=== PATIENT | male | born 1985 | race Two or more races ===

== ENCOUNTER 2016-12-10 20:42 | Emergency (ER) | payer MEDICAID ==
[~2016-12-10] VITALS: Ht 175.3 cm; Wt 108.9 kg
[2016-12-10 23:14] LABS: Basophils # (auto) 0 uL; Basophils % (auto) 0.3 % (0.0-2.0); Eosinophils # (auto) 0.3 uL; Eosinophils % (auto) 2.1 % (0.0-7.0); Hematocrit 44.7 % (41.0-53.0); Hemoglobin 14.7 g/dL (13.5-17.5); Lymphocytes # (auto) 2.6 uL; Mean Corpuscular Hemoglobin 28.9 pg (28.0-32.0); Mean Corpuscular Volume 87.7 fL (80.0-100.0); Mean Platelet Volume 7.8 fL (7.4-10.4); Monocytes # (auto) 0.9 uL; Neutrophils # (auto) 8.7 uL; Neutrophils % (auto) 69.6 % (37.0-80.0); Platelet Count (auto) 329 10^3/uL (140-450); Red Cell Distribution Width 14.2 % (11.6-16.0); White Blood Cell 12.6 10^3/uL (4.4-10.8)
[2016-12-10 23:28] LABS: Calcium 8.8 mg/dL (8.5-10.1); Potassium 3.8 mmol/L (3.5-5.1)
[2016-12-10 23:33] LABS: Bilirubin, Total 0.3 mg/dL (0.2-1.0); Total Protein 8.4 g/dL (6.4-8.2)
[2016-12-11] MEDS ORDERED: LORazepam 0.5 MG TAB PO ONE (00:15)
[2016-12-11 02:40] VITALS: BP 148/98
== END 2016-12-11 03:10 | disposition home or self-care (01) ==
LOC: ER 20:50
DX: T56.891A Toxic effect of other metals, accidental (unintentional), initial encounter (principal); F41.9 Anxiety disorder, unspecified; K21.9 Gastro-esophageal reflux disease without esophagitis; F31.9 Bipolar disorder, unspecified; X58.XXXA Exposure to other specified factors, initial encounter; Y93.89 Activity, other specified; Y99.8 Other external cause status; Y92.89 Other specified places as the place of occurrence of the external cause
CPT/HCPCS: 36415; 80053; 80178; 80329; 85025; 85049; 99284; G0434

== ENCOUNTER 2017-04-22 20:47 | Emergency (ER) | payer MEDICAID ==
[~2017-04-22] VITALS: Ht 175.3 cm; Wt 163.3 kg
[2017-04-22] MEDS ORDERED: SODIUM CHLORIDE 0.9% 1,000 ML IV ONE (21:00)
[2017-04-22 21:50] LABS: Basophils # (auto) 0 uL; Basophils % (auto) 0.2 % (0.0-2.0); Eosinophils # (auto) 0.1 uL; Eosinophils % (auto) 0.3 % (0.0-7.0); Hematocrit 45.3 % (41.0-53.0); Hemoglobin 15.6 g/dL (13.5-17.5); Lymphocytes # (auto) 1.7 uL; Lymphocytes % (auto) 11.1 % (10.0-50.0); Mean Corpuscular Hemoglobin 29.5 pg (28.0-32.0); Mean Corpuscular Hgb Conc. 34.3 g/dL (32.0-36.0); Mean Corpuscular Volume 86.1 fL (80.0-100.0); Mean Platelet Volume 8.4 fL (7.4-10.4); Monocytes # (auto) 0.7 uL; Monocytes % (auto) 4.6 % (0.0-12.0); Neutrophils # (auto) 12.8 uL; Neutrophils % (auto) 83.8 % (37.0-80.0); Platelet Count (auto) 327 10^3/uL (140-450); Red Cell Distribution Width 13.9 % (11.6-16.0); White Blood Cell 15.3 10^3/uL (4.4-10.8)
[2017-04-22 22:02] LABS: Albumin 4.4 g/dL (3.4-5.0); Anion Gap 15 (5-15); Aspartate Aminotransferase 13 U/L (15-37); BUN/Creatinine Ratio 12.8; Blood Urea Nitrogen 12 mg/dL (7-18); Calcium 9.3 mg/dL (8.5-10.1); Carbon Dioxide 20 mmol/L (21-32); Chloride 107 mmol/L (98-107); GFR African American 120 mL/min; GFR Non-African American 99 mL/min; Glucose 93 mg/dL (74-106); Potassium 3.5 mmol/L (3.5-5.1); Sodium 142 mmol/L (136-145)
[2017-04-22 22:04] LABS: Alkaline Phosphatase 65 U/L (45-117); Bilirubin, Total 0.6 mg/dL (0.2-1.0); Total Protein 8.9 g/dL (6.4-8.2)
[2017-04-23 00:31] LABS: Acetaminophen < 2.0 ug/mL (10-30)
[2017-04-23 01:04] LABS: Urine Bilirubin Negative (Negative); Urine Blood Negative /uL (Negative); Urine Color Yellow (Yellow); Urine Glucose Normal (Normal); Urine Mucus FEW (None Seen); Urine Nitrite Negative (Negative); Urine RBC <1 /hpf (0 - 3); Urine Squamous Epithelial Cell FEW /hpf (<5); Urine Urobilinogen Normal (Negative)
[2017-04-23 01:06] LABS: Urine Ketone 3+ (Negative)
[2017-04-23] MEDS ORDERED: LORazepam 0.5 MG TAB PO ONE (01:15)
[2017-04-23 04:12] VITALS: BP 126/77
== END 2017-04-23 05:55 | disposition home or self-care (01) ==
LOC: EDBD 20:47 → ER 20:50
DX: F32.9 Major depressive disorder, single episode, unspecified (principal); F41.9 Anxiety disorder, unspecified; F20.9 Schizophrenia, unspecified; K21.9 Gastro-esophageal reflux disease without esophagitis
CPT/HCPCS: 36415; 80053; 80178; 80307; 80320; 80329; 81001; 85025; 93005; 94761; 96360; 96361; 99285; J7030

== ENCOUNTER 2017-06-11 00:48 | Emergency (ER) | payer MEDICAID ==
[~2017-06-11] VITALS: Ht 175.3 cm; Wt 117.1 kg
[2017-06-11 01:34] LABS: Basophils # (auto) 0 uL; Basophils % (auto) 0.3 % (0.0-2.0); CONDITION Y; Eosinophils # (auto) 0.2 uL; Eosinophils % (auto) 1.5 % (0.0-7.0); Hemoglobin 15.3 g/dL (13.5-17.5); Lymphocytes # (auto) 2.4 uL; Lymphocytes % (auto) 15.7 % (10.0-50.0); Mean Corpuscular Hemoglobin 30.1 pg (28.0-32.0); Mean Corpuscular Hgb Conc. 34.7 g/dL (32.0-36.0); Mean Corpuscular Volume 86.6 fL (80.0-100.0); Mean Platelet Volume 8.4 fL (7.4-10.4); Monocytes # (auto) 0.8 uL; Monocytes % (auto) 5.6 % (0.0-12.0); Neutrophils # (auto) 11.5 uL; Neutrophils % (auto) 76.9 % (37.0-80.0); Platelet Count (auto) 315 10^3/uL (140-450); Red Cell Distribution Width 13.9 % (11.6-16.0)
[2017-06-11 01:48] LABS: INR 0.98 (0.9-1.15); Partial Thromboplastin Time 28.2 sec (22.64-33.71); Prothrombin Time 10.7 sec (9.37-12.3)
[2017-06-11 01:51] LABS: Albumin 4.3 g/dL (3.4-5.0); BUN/Creatinine Ratio 17.3; Potassium 3.6 mmol/L (3.5-5.1)
[2017-06-11 01:54] LABS: Bilirubin, Total 0.4 mg/dL (0.2-1.0); Total Protein 8.8 g/dL (6.4-8.2)
[2017-06-11 04:03] LABS: Urine Bilirubin Negative (Negative); Urine Blood Negative /uL (Negative); Urine Color Yellow (Yellow); Urine Glucose Normal (Normal); Urine Ketone TRACE (Negative); Urine Mucus FEW (None Seen); Urine Nitrite Negative (Negative); Urine RBC <1 /hpf (0 - 3); Urine Squamous Epithelial Cell FEW /hpf (<5); Urine Urobilinogen Normal (Negative); Urine pH 5.5 (5.0-8.0)
[2017-06-11 07:00] VITALS: BP 134/84
[2017-06-11] MEDS ORDERED: CIPROFLOXACIN HCL 500 MG TAB PO ONE (08:00)
== END 2017-06-11 08:34 | disposition home or self-care (01) ==
LOC: ER 00:48
DX: N39.0 Urinary tract infection, site not specified (principal); K21.9 Gastro-esophageal reflux disease without esophagitis; R19.7 Diarrhea, unspecified
CPT/HCPCS: 36415; 74176; 80053; 81001; 82150; 83690; 85025; 85610; 85730

== ENCOUNTER 2017-06-20 22:47 | Emergency (ER) | payer MEDICAID ==
[~2017-06-20] VITALS: Ht 175.3 cm; Wt 113.4 kg
[2017-06-20 23:39] LABS: Basophils # (auto) 0 uL; Basophils % (auto) 0.2 % (0.0-2.0); Eosinophils # (auto) 0.5 uL; Eosinophils % (auto) 3.4 % (0.0-7.0); Hemoglobin 14.8 g/dL (13.5-17.5); Lymphocytes # (auto) 2.7 uL; Lymphocytes % (auto) 19.9 % (10.0-50.0); Mean Corpuscular Hemoglobin 29.2 pg (28.0-32.0); Mean Corpuscular Hgb Conc. 33.7 g/dL (32.0-36.0); Mean Corpuscular Volume 86.8 fL (80.0-100.0); Mean Platelet Volume 8.5 fL (7.4-10.4); Monocytes # (auto) 0.7 uL; Monocytes % (auto) 5.4 % (0.0-12.0); Neutrophils # (auto) 9.6 uL; Neutrophils % (auto) 71.1 % (37.0-80.0); Platelet Count (auto) 290 10^3/uL (140-450); Red Cell Distribution Width 12.9 % (11.6-16.0); White Blood Cell 13.5 10^3/uL (4.4-10.8)
[2017-06-20 23:54] LABS: Albumin 4.2 g/dL (3.4-5.0); BUN/Creatinine Ratio 21.9; Calcium 8.9 mg/dL (8.5-10.1); INR 0.95 (0.9-1.15); Partial Thromboplastin Time 28.3 sec (22.64-33.71); Potassium 3.7 mmol/L (3.5-5.1); Prothrombin Time 10.3 sec (9.37-12.3)
[2017-06-20 23:57] LABS: Bilirubin, Total 0.4 mg/dL (0.2-1.0); Total Protein 8.5 g/dL (6.4-8.2)
[2017-06-21] MEDS ORDERED: HYDROcodone-ACET 5/325MG TAB PO ONE (07:15)
[2017-06-21] MEDS ORDERED: cefTRIAXone W LIDOCAINE 1 GM IM IM ONE (07:15)
[2017-06-21] MEDS ORDERED: cefTRIAXone SOD 1,000 MG VL ONE (07:27)
[2017-06-21] MEDS ORDERED: LIDOCAINE 2%HCL (LOCAL ANESTH.) INJ 20ML MDV ONE (07:27)
[2017-06-21 08:50] VITALS: BP 128/82
== END 2017-06-21 07:24 | disposition home or self-care (01) ==
LOC: ER 22:49
DX: F41.9 Anxiety disorder, unspecified (principal); R51 Headache; R10.9 Unspecified abdominal pain; K21.9 Gastro-esophageal reflux disease without esophagitis; F20.9 Schizophrenia, unspecified
CPT/HCPCS: 36415; 70450; 80053; 82150; 83690; 85025; 85610; 85730; 96372; 99285; J0696

== ENCOUNTER 2017-08-21 17:32 | Emergency (ER) | payer MEDICAID ==
[~2017-08-21] VITALS: Ht 175.3 cm; Wt 108.9 kg
[2017-08-21 19:01] LABS: Basophils # (auto) 0 uL; Basophils % (auto) 0.3 % (0.0-2.0); Eosinophils # (auto) 0.3 uL; Eosinophils % (auto) 2.5 % (0.0-7.0); Hematocrit 44.4 % (41.0-53.0); Hemoglobin 14.9 g/dL (13.5-17.5); Lymphocytes # (auto) 2.6 uL; Lymphocytes % (auto) 22.3 % (10.0-50.0); Mean Corpuscular Hemoglobin 29.3 pg (28.0-32.0); Mean Corpuscular Hgb Conc. 33.6 g/dL (32.0-36.0); Mean Corpuscular Volume 87.3 fL (80.0-100.0); Mean Platelet Volume 8.3 fL (6.9-10.8); Monocytes # (auto) 0.7 uL; Monocytes % (auto) 6.4 % (0.0-12.0); Neutrophils # (auto) 7.9 uL; Neutrophils % (auto) 68.5 % (37.0-80.0); Platelet Count (auto) 277 10^3/uL (140-450); Red Cell Distribution Width 14.2 % (11.8-14.3); White Blood Cell 11.5 10^3/uL (4.4-10.8)
[2017-08-21 19:02] LABS: Urine Bilirubin Negative (Negative); Urine Blood Negative /uL (Negative); Urine Color Yellow (Yellow); Urine Glucose Normal (Normal); Urine Ketone Negative (Negative); Urine Nitrite Negative (Negative); Urine RBC <1 /hpf (0 - 3); Urine Urobilinogen Normal (Negative)
[2017-08-21 19:04] LABS: Albumin 4.5 g/dL (3.4-5.0); Bilirubin, Total 0.4 mg/dL (0.2-1.0); Calcium 8.9 mg/dL (8.5-10.1); Potassium 3.5 mmol/L (3.5-5.1); Total Protein 8.7 g/dL (6.4-8.2)
[2017-08-21] MEDS ORDERED: SODIUM CHLORIDE 0.9% 1,000 ML IV ONE (20:46)
[2017-08-21] MEDS ORDERED: ONDANSETRON HCL 4 MG/2 ML VIAL IV ONE (21:00)
[2017-08-21 21:16] LABS: INR 0.94 (0.9-1.15); Partial Thromboplastin Time 30.1 sec (22.64-33.71); Prothrombin Time 10.2 sec (9.37-12.3)
[2017-08-22 00:03] VITALS: BP 114/80
== END 2017-08-21 23:30 | disposition home or self-care (01) ==
LOC: ER 17:43
DX: K52.9 Noninfective gastroenteritis and colitis, unspecified (principal); K21.9 Gastro-esophageal reflux disease without esophagitis
CPT/HCPCS: 36415; 74176; 80053; 81001; 83605; 83690; 85025; 85610; 85730; 96361; 96374; 99285; J2405; J7030